=== PATIENT | female | born 1975 | race Two or more races ===

== ENCOUNTER 2020-07-19 08:36 | Emergency (ER) | payer SELFPAY ==
[~2020-07-19] VITALS: Ht 157.5 cm; Wt 93.4 kg
[2020-07-19] MEDS ORDERED: KETOROLAC 30MG/ML VIAL IV STA (09:16)
[2020-07-19] MEDS ORDERED: SODIUM CHLORIDE 0.9% 1,000 ML IV ONE (09:30)
[2020-07-19 09:53] LABS: BASOPHILS % 1.1 % (0.0-2.0); EOSINOPHILS % 4.3 % (0.0-5.0); HEMATOCRIT. 38.9 % (36.0-48.0); HEMOGLOBIN. 12.9 g/dL (12.0-16.0); LYMPHOCYTES % 33.1 % (20.0-50.0); MEAN CORPUSCULAR HEMOGLOBIN 27.4 pg (28.0-32.0); MEAN CORPUSCULAR VOLUME 82.7 fL (81.0-99.0); MEAN PLATELET VOLUME 7.9 fl (7.4-10.4); MONOCYTES % 8.6 % (2.0-8.0); NEUTROPHILS % 52.9 % (40.0-76.0); PLATELET 294 x1000/uL (130-400); RED BLOOD CELL COUNT 4.71 mill/uL (4.2-5.4); RED CELL DISTRIBUTION WIDTH 13.9 % (11.6-14.6)
[2020-07-19 09:57] LABS: CHLORIDE 100 mEq/L (98-107)
[2020-07-19 10:00] LABS: PROTHROMBIN TIME 10.3 sec (9.6-11.0)
[2020-07-19 10:03] LABS: CLARITY URINE CLEAR (CLEAR); COLOR URINE YELLOW (YELLOW); KETONES URINE NEGATIVE (NEGATIVE); LEUKOCYTE ESTERASE URINE TRACE (NEGATIVE); NITRITE URINE NEGATIVE (NEGATIVE); OCCULT BLOOD URINE NEGATIVE (NEGATIVE); PROTEIN URINE NEGATIVE (NEGATIVE); SPECIFIC GRAVITY URINE 1.023 (1.005-1.030); UROBILINOGEN URINE 0.2 E.U./dL (0.2-1.0)
[2020-07-19 12:10] VITALS: BP 155/80
== END 2020-07-19 12:34 | disposition home or self-care (01) ==
LOC: ER 08:36
DX: N10 Acute pyelonephritis (principal); E11.9 Type 2 diabetes mellitus without complications
CPT/HCPCS: 36415; 71045; 74018; 80053; 81003; 81025; 85025; 85610; 93005; 96361; 96374; 99285; J1885; J7030; Z7610

== ENCOUNTER 2020-09-10 09:46 | Emergency (ER) | payer OTHER ==
[~2020-09-10] VITALS: Ht 157.5 cm; Wt 86.0 kg
[2020-09-10 09:49] VITALS: BP 133/103
== END 2020-09-10 11:20 | disposition home or self-care (01) ==
LOC: ER 09:46
DX: E11.9 Type 2 diabetes mellitus without complications (principal); Z76.0 Encounter for issue of repeat prescription; Z98.890 Other specified postprocedural states
CPT/HCPCS: 99283